=== PATIENT | female | born 1955 | race Caucasian/White ===

== ENCOUNTER → 2016-05-19 | Outpatient (CLI) | payer MEDICARE ==
[2016-05-19 15:28] LABS: Non-African American GFR(MDRD) >60 (>60 ml/min/1.73 sqM)
--- NOTE | 2016-05-19 23:11 | MR ---
EXAMINATION TYPE: MR brain wo/w con DATE OF EXAM: 05/19/2016 8:33 PM COMPARISON: 08/23/2015 HISTORY: MS, recent CHI, increased left leg weakness CONTRAST: Standard multiplanar, multisequence MRI departmental protocol utilizing 12 mL intravenous MultiHance gadolinium contrast. FINDINGS: There is extensive patchy increased signal on the T2 and FLAIR images in the periventricula r white matter. These areas measure up to 2 cm. Densities are coalescent. There is thinning of the co rpus callosum. The brainstem is intact. There is some mucosal thickening in the nasopharynx. Ventricl es are of normal size. There is white matter disease sparing of the cerebellum. There is increased si gnal within the thinned corpus callosum. I see no pathologic enhancement. Sella turcica appears hill l. Optic chiasm appears normal. IMPRESSION: Extensive white matter changes in both cerebral hemispheres with also involvement of the corpus callo sum and this is consistent with significant demyelinating disease. I do not see any progression of di sease compared to the last exam of 08/23/2015. The lesions are numerous and coalescent. Mild chronic e thmoid sinusitis.
== END | disposition home or self-care (01) ==
LOC: RADMRIMAIN 14:58
PROVIDERS: ATTEND Psychiatry & Neurology Neurology
DX: R90.82 White matter disease, unspecified (principal); G93.9 Disorder of brain, unspecified
CPT/HCPCS: 82565; 70553; A9577

== ENCOUNTER → 2018-02-15 | Outpatient (CLI) | payer MEDICARE ==
[~2018-02-15] MED LIST: SODIUM CHLORIDE 0.9% 500 ML 500 ML in EMPTY BAG 1 BAG IV PRN
[2018-02-15 14:10] VITALS: BP 100/65; PULSE 73; RESP 16; TEMP 98.1
== END | disposition home or self-care (01) ==
LOC: PROCWHC3 13:50
PROVIDERS: ATTEND Psychiatry & Neurology Neurology
DX: G35 Multiple sclerosis (principal)
CPT/HCPCS: 96365; J2930

== ENCOUNTER → 2018-05-19 | Outpatient (CLI) | payer MEDICARE | LOC: LABWHC1 10:55 | PROVIDERS: ATTEND Psychiatry & Neurology Neurology | DX: Z11.59 Encounter for screening for other viral diseases (principal) | CPT/HCPCS: 36415; 86704 ==

== ENCOUNTER → 2018-06-16 | Outpatient (CLI) | payer MEDICARE | END | disposition home or self-care (01) | LOC: LABWHC1 11:11 | PROVIDERS: ATTEND Psychiatry & Neurology Neurology | DX: G35 Multiple sclerosis (principal) | CPT/HCPCS: 36415; 86704 ==

== ENCOUNTER → 2019-03-27 | Outpatient (CLI) | payer MEDICARE ==
[2019-03-27 11:45] LABS: HCT 40.3 % (34.0-46.0); HGB 12.5 gm/dL (11.4-16.0); Hypochromasia Moderate; MCH 26.7 pg (25.0-35.0); MCHC 31.1 g/dL (31.0-37.0); MCV 85.9 fL (80.0-100.0); Mean Platelet Volume 7.2; Platelet Count 365 k/uL (150-450); RDW 13.8 % (11.5-15.5); WBC 7.6 k/uL (3.8-10.6)
[2019-03-27 17:56] LABS: Hemoglobin A1C 6.2 % (4.0-6.0)
[2019-03-27 18:37] LABS: ALT 30 U/L (8-44); AST 29 U/L (13-35); African American GFR (CKD) 106.9 (60.0-200.0); Alkaline Phosphatase 135 U/L (41-126); BUN/Creat Ratio 27.14 Ratio (12.00-20.00); C Reactive Protein <0.4 mg/dL (0.0-0.8); Calcium 9.8 mg/dL (8.7-10.3); Carbon Dioxide 25.5 mmol/L (21.6-31.8); Chloride 107 mmol/L (96-109); Creatine Kinase 53 U/L (26-186); Glucose 89 mg/dL (70-110); Non-African American GFR(CKD) 92.2 (60.0-200.0); Potassium 4.7 mmol/L (3.5-5.5); Sodium 140 mmol/L (135-145); Total Bilirubin 0.3 mg/dL (0.3-1.2); Total Protein 6.2 g/dL (6.2-8.2)
== END | disposition home or self-care (01) ==
LOC: LABWHC1 10:36
PROVIDERS: ATTEND Psychiatry & Neurology Neurology
DX: I67.9 Cerebrovascular disease, unspecified (principal); G35 Multiple sclerosis; T50.905A Adverse effect of unspecified drugs, medicaments and biological substances, initial encounter; R93.6 Abnormal findings on diagnostic imaging of limbs; R53.1 Weakness; R73.9 Hyperglycemia, unspecified
CPT/HCPCS: 36415; 80053; 82550; 82607; 83036; 83090; 85027; 86140

== ENCOUNTER → 2019-03-29 | Outpatient (CLI) | payer MEDICARE ==
--- NOTE | 2019-03-29 14:42 | MR ---
EXAMINATION TYPE: MR brain/cspine wo/w DATE OF EXAM: 03/29/2019 COMPARISON: 08/23/2015 HISTORY: MS, worsening balance and gait CONTRAST: Performed utilizing 4.5 mL intravenous Gadavist gadolinium contrast. TECHNIQUE: Multiplanar, multiecho imaging on a 3.0 Shanna magnet is performed through the brain. Stud y is performed within 24 hours of arrival to the hospital. The craniovertebral junction is normal. The pituitary is normal. Diffusion-weighted imaging is performed. No abnormal hyperintensity is present to suggest an acute i ntracranial infarct or acute ischemic change. White matter changes: Present There are patchy to confluent white matter changes in the periventricular white matter. This appears similar to the comparison study. Distribution and pattern appears stable. Reference measurements in the posterior left centrum semiovale is 1.1 compared to 1.0 cm previous (se vida 501 image 22) and within the right frontal region 1.5 cm compared to 1.5 cm previous (series 50 1 image 22). No new lesions or enhancing lesions are evident. Ventricles and sulci are appropriate for the patient age. Postcontrast imaging is performed. No suspicious enhancement is evident. IMPRESSIONS: 1. Confluent periventricular white matter changes, stable from comparison. EXAMINATION TYPE: MR brain/cspine wo/w DATE OF EXAM: 03/29/2019 COMPARISON: 08/23/2015 HISTORY: MS, worsening balance and gait CONTRAST: Performed utilizing 4.5 mL intravenous Gadavist gadolinium contrast. TECHNIQUE: Multiplanar multiecho imaging on a 3.0 Shanna magnet is performed through the cervical spin e. FINDINGS: The craniovertebral junction is normal. Vertebral body alignment is normal. There is a p rior fusion between C4 appears to be C6. The postsurgical fusion changes make level identification di fficult. C7-T1: No focal disc herniation or significant disc bulge is evident. No spinal canal stenosis or n eural foraminal stenosis is present. C6-7: There is a right paracentral focal bulge with anterior thecal sac compression. No cord contact is evident. Neural foramen are patent.. C5-6: Some endplate changes have mild anterior thecal sac compression. No cord contact or cord deform ity is evident.. C4-5: No focal disc herniation or significant disc bulge is evident. No spinal canal stenosis or nimisha ral foraminal stenosis is present. C3-4: Mild disc bulging is anterior thecal sac contact. No cord contact is evident. No spinal canal s tenosis or neural foraminal stenosis is present.. C2-3: No focal disc herniation or significant disc bulge is evident. No spinal canal stenosis or nimisha ral foraminal stenosis is present. Posterior joint of T6 level there is a focal area of increased signal within the spinal cord this kourtney sures approximately 0.6 cm, series [id number]. This appears to be more focal and developing from the sury rison study. The fainter white matter changes are not as apparent on the current exam. No suspicious enhancement is evident. IMPRESSIONS: 1. There may be some developing white matter plaque posterior to C6 which can be compatible with mult iple sclerosis in proper clinical setting
== END | disposition home or self-care (01) ==
LOC: RADMRIMAIN 07:50
PROVIDERS: ATTEND Psychiatry & Neurology Neurology
DX: R90.89 Other abnormal findings on diagnostic imaging of central nervous system (principal); G35 Multiple sclerosis
CPT/HCPCS: 70553; 72156; A9585

== ENCOUNTER → 2019-10-09 | Outpatient (CLI) | payer MEDICARE ==
[2019-10-09 13:13] LABS: Basophils # (A) 0.1 k/uL (0-0.2); Basophils % (A) 1 %; Eosinophils # (A) 0.5 k/uL (0-0.7); Eosinophils % (A) 9 %; HCT 38.3 % (34.0-46.0); HGB 12.1 gm/dL (11.4-16.0); Hypochromasia Moderate; Lymphocytes # (A) 1.8 k/uL (1.0-4.8); Lymphocytes % (A) 31 %; MCHC 31.6 g/dL (31.0-37.0); MCV 85.6 fL (80.0-100.0); Mean Platelet Volume 9.1; Monocytes # (A) 0.3 k/uL (0-1.0); Monocytes % (A) 5 %; Neutrophils # (A) 2.8 k/uL (1.3-7.7); Neutrophils % (A) 49 %; Platelet Count 303 k/uL (150-450); RBC 4.47 m/uL (3.80-5.40); RDW 13.9 % (11.5-15.5); WBC 5.8 k/uL (3.8-10.6)
[2019-10-09 20:22] LABS: African American GFR (CKD) 118.5 (60.0-200.0); Albumin 4.2 g/dL (3.80-4.90); Anion Gap 5.9 mmol/L (4.00-12.00); Calcium 9.6 mg/dL (8.7-10.3); Carbon Dioxide 29.1 mmol/L (21.6-31.8); Globulin 2.1 g/dL (1.6-3.3); Non-African American GFR(CKD) 102.3 (60.0-200.0); Potassium 4.8 mmol/L (3.5-5.5); Total Bilirubin 0.6 mg/dL (0.2-1.2); Total Protein 6.3 g/dL (6.2-8.2)
== END | disposition home or self-care (01) ==
LOC: LABWHC1 11:54
PROVIDERS: ATTEND Psychiatry & Neurology Neurology
DX: G35 Multiple sclerosis (principal); T50.995A Adverse effect of other drugs, medicaments and biological substances, initial encounter
CPT/HCPCS: 36415; 80053; 85025

== ENCOUNTER → 2020-10-21 | Outpatient (CLI) | payer MEDICARE ==
[2020-10-21 13:25] LABS: Appearance,Urine Clear (Clear); Bilirubin,Urine Negative (Negative); Blood,Urine Small (Negative); Color,Urine Yellow; Glucose,Urine (UA) Negative (Negative); Hyaline Casts,Urine 1 /lpf (0-2); Ketones,Urine Negative (Negative); Leukocyte Esterase,Urine Trace (Negative); Mucus,Urine Few /hpf; Nitrite,Urine Negative (Negative); PH, Urine 6.5 (5.0-8.0); Protein,Urine Negative (Negative); RBC,Urine 13 /hpf (0-5); Specific Gravity,Urine 1.014 (1.001-1.035); Squamous Epithelial Cell,Urine <1 /hpf (0-4); Urobilinogen,Urine <2.0 mg/dL (<2.0); WBC,Urine <1 /hpf (0-5)
[2020-10-21 18:48] LABS: Basophils # (A) 0.06 X 10*3/uL (0.00-0.10); Basophils % (A) 0.9 %; Eosinophils % (A) 4.3 %; HCT 39.5 % (37.2-46.3); HGB 12.4 g/dL (12.0-15.0); Lymphocytes # (A) 2.03 X 10*3/uL (0.90-5.00); Lymphocytes % (A) 28.9 %; MCH 29.2 pg (27.0-32.0); MCHC 31.4 g/dL (32.0-37.0); MCV 93.2 fL (80.0-97.0); Mean Platelet Volume 11.8 fL (9.5-12.2); Monocytes # (A) 0.38 X 10*3/uL (0.20-1.00); Monocytes % (A) 5.4 %; Neutrophils # (A) 4.24 X 10*3/uL (1.80-7.70); Neutrophils % (A) 60.4 %; Platelet Count 268 X 10*3/uL (140-440); RBC 4.24 X 10*6/uL (4.10-5.20); WBC 7.02 X 10*3/uL (4.50-10.00)
[2020-10-21 20:04] LABS: ALT 20 U/L (8-44); AST 22 U/L (13-35); African American GFR (CKD) 110.9 (60.0-200.0); Albumin/Globulin Ratio 1.78 (1.60-3.17); Alkaline Phosphatase 101 U/L (41-126); BUN/Creat Ratio 28.33 Ratio (12.00-20.00); Calcium 9.2 mg/dL (8.7-10.3); Carbon Dioxide 28.5 mmol/L (21.6-31.8); Chloride 106 mmol/L (96-109); Globulin 2.3 g/dL (1.6-3.3); Glucose 84 mg/dL (70-110); Non-African American GFR(CKD) 95.7 (60.0-200.0); Potassium 4.5 mmol/L (3.5-5.5); Sodium 138 mmol/L (135-145); Total Bilirubin 0.6 mg/dL (0.2-1.2); Total Protein 6.4 g/dL (6.2-8.2)
== END | disposition home or self-care (01) ==
LOC: LABWHC1 12:01
PROVIDERS: ATTEND Psychiatry & Neurology Neurology
DX: G35 Multiple sclerosis (principal); R35.0 Frequency of micturition; Z79.899 Other long term (current) drug therapy
CPT/HCPCS: 36415; 80053; 81001; 82306; 82607; 84439; 84443; 85025; 87086

== ENCOUNTER → 2020-12-16 | Outpatient (CLI) | payer MEDICARE ==
--- NOTE | 2020-12-17 04:07 | MR ---
EXAMINATION TYPE: MR brain/cspine wo/w DATE OF EXAM: 12/16/2020 COMPARISON: 03/29/2019 HISTORY: Worsening MS, Gait imbalance CONTRAST: Standard multiplanar, multisequence MRI departmental protocol utilizing 5 mL intravenous Gadavist dawit olinium contrast. There is cerebral cortical atrophy. On the T2 and FLAIR images there is extensive coalescent increase d signal in the periventricular white matter. This extends from the ventricles into the treviño-white ma tter junction of both cerebral hemispheres. The brainstem is intact. Cerebellum is intact. Contrast i mages show no pathologic enhancement. There is normal enhancement of the venous sinuses. The corpus c allosum shows mild thinning. There is multilevel cervical spine fusion surgery. Cervical spinal cord shows no edema. There is narr owing of the spinal canal due to facet arthropathy and endplate spur formation at C5-6. Spinal canal measures 6 mm at C5-6 which is the narrowest point. There is a 5 mm focus of increased signal in the upper cord and medulla at the C1 level on the left side. This appears nonenhancing. IMPRESSION: Extensive white matter disease in both cerebral hemispheres without enhancement. This would be consis tent with demyelinating disease or severe microvascular ischemia. Cerebral atrophy. Brain appears not significantly different than old exam. Single focus of increased signal in the upper cervical cord and medulla on the left side consistent w ith demyelinating disease. Unchanged. Cervical spinal stenosis with previous cervical spine surgery. Unchanged. I do not see any significant evidence for progression of disease compared to old exam.
== END | disposition home or self-care (01) ==
LOC: RADMRIMAIN 11:39
PROVIDERS: ATTEND Psychiatry & Neurology Neurology
DX: M48.02 Spinal stenosis, cervical region (principal); G31.9 Degenerative disease of nervous system, unspecified
CPT/HCPCS: 70553; 72156; A9585

== ENCOUNTER → 2021-08-18 | Outpatient (CLI) | payer MEDICARE ==
[2021-08-19 15:00] LABS: Appearance,Urine Clear (Clear); Bacteria,Urine Rare /hpf; Bilirubin,Urine Negative (Negative); Blood,Urine Trace (Negative); Calcium Oxalate Crystals,Urine Few /hpf; Color,Urine Yellow; Glucose,Urine (UA) Negative (Negative); Ketones,Urine Negative (Negative); Leukocyte Esterase,Urine Negative (Negative); Mucus,Urine Occasional /hpf; Nitrite,Urine Negative (Negative); PH, Urine 6.5 (5.0-8.0); Protein,Urine Negative (Negative); RBC,Urine 8 /hpf (0-5); Specific Gravity,Urine 1.017 (1.001-1.035); Urobilinogen,Urine <2.0 mg/dL (<2.0); WBC,Urine 2 /hpf (0-5)
== END | disposition home or self-care (01) ==
LOC: LABWHC1 10:18
PROVIDERS: ATTEND Psychiatry & Neurology Neurology
DX: M25.50 Pain in unspecified joint (principal); Z87.440 Personal history of urinary (tract) infections
CPT/HCPCS: 36415; 81001; 85652; 86431

== ENCOUNTER → 2023-01-28 | Outpatient (CLI) | payer MEDICARE ==
[2023-01-28 16:37] LABS: ALT 32 U/L (8-44); AST 24 U/L (13-35); Albumin 4.5 d/dL (3.8-4.9); Alkaline Phosphatase 87 U/L (41-126); BUN/Creat Ratio 26.71 Ratio (12.00-20.00); Blood Urea Nitrogen 18.7 mg/dL (9.0-27.0); Calcium 10.2 mg/dL (8.7-10.3); Carbon Dioxide 28.9 mmol/L (21.6-31.8); Chloride 105 mmol/L (96-109); Globulin 2.5 d/dL (1.6-3.3); Glucose 109 mg/dL (70-110); Potassium 4.3 mmol/L (3.5-5.5); Sodium 143 mmol/L (135-145); Total Bilirubin 0.4 mg/dL (0.3-1.2)
[2023-01-28 17:08] LABS: Basophils # (A) 0.09 X 10*3/uL (0.00-0.10); Basophils % (A) 1.5 %; Eosinophils # (A) 0.56 X 10*3/uL (0.04-0.35); Eosinophils % (A) 9.4 %; HCT 39.4 % (37.2-46.3); HGB 12.6 d/dL (12.0-15.0); Lymphocytes # (A) 1.27 X 10*3/uL (0.90-5.00); Lymphocytes % (A) 21.3 %; MCH 29.9 pg (27.0-32.0); MCV 93.4 FL (80.0-97.0); Mean Platelet Volume 11.1 FL (9.5-12.2); Monocytes # (A) 0.43 X 10*3/uL (0.20-1.00); Monocytes % (A) 7.2 %; NRBC Per 100 WBC 0 X 10*3/uL (0.00-0.01); Neutrophils # (A) 3.58 X 10*3/uL (1.80-7.70); Neutrophils % (A) 60.3 %; Platelet Count 305 X 10*3/uL (140-440); RBC 4.22 X 10*6/uL (4.10-5.20); RDW 14.7 % (11.5-14.5); WBC 5.95 X 10*3/uL (4.50-10.00)
== END | disposition home or self-care (01) ==
LOC: LABWHC1 10:58
PROVIDERS: ATTEND Psychiatry & Neurology Neurology
DX: N39.0 Urinary tract infection, site not specified (principal); G35 Multiple sclerosis; Z79.899 Other long term (current) drug therapy
CPT/HCPCS: 36415; 80053; 85025

== ENCOUNTER → 2023-01-29 | Outpatient (CLI) | payer MEDICARE ==
[2023-01-29 22:39] LABS: Appearance,Urine Cloudy (Clear); Bilirubin,Urine Negative (Negative); Blood,Urine Moderate (Negative); Color,Urine Yellow (Yellow); Ketones,Urine Negative (Negative); Nitrite,Urine Negative (Negative); Specific Gravity,Urine 1.018 (1.001-1.030)
[2023-01-29 22:55] LABS: Bacteria,Urine 4+ (None Seen); Calcium Oxalate Crystals,Urine Present (None Seen)
== END | disposition home or self-care (01) ==
LOC: LABWHC1 09:59
PROVIDERS: ATTEND Psychiatry & Neurology Neurology
DX: N39.0 Urinary tract infection, site not specified (principal); G35 Multiple sclerosis; Z79.899 Other long term (current) drug therapy
CPT/HCPCS: 81001; 87077; 87086; 87186

== ENCOUNTER → 2023-05-06 | Outpatient (CLI) | payer MEDICARE ==
--- NOTE | 2023-05-09 12:22 | MR ---
EXAMINATION TYPE: MR lumbar spine wo con DATE OF EXAM: 05/06/2023 COMPARISON: None HISTORY: Pain CONTRAST: 0 mL intravenous Gadavist. TECHNIQUE: Multiplanar, multisequence images of the lumbar spine were acquired. FINDINGS: L5-S1: There is loss of disc height is normal. Broad-based disc bulge has epidural space impression. There is compression and displacement of the left exiting S1 nerve root within the spinal canal. Mini mal contact with the right exiting S1 nerve root is present. No AP spinal canal stenosis is present. Facet hypertrophy as left posterior lateral thecal sac compression. There may be nerve root compressi on within the left foramen. Severe left and moderate to severe right foraminal stenosis is present. C orrelate with left S1 radicular symptoms. L4-L5: Very minimal anterior listhesis of L4 anteriorly on L5 may be present. Facet hypertrophy with ligamentum flavum laxity is present. This has bilateral posterior lateral thecal sac impression. Ther e has trefoil appearance to the thecal sac. Some stenosis is present. AP spinal canal narrowing is no t evident. Moderate bilateral foraminal stenosis is present. L3-L4: Facet hypertrophy is some mild posterior lateral thecal sac compression. No spinal canal. Mode rate right and left foraminal narrowing is present. No AP spinal canal stenosis. L2-L3: Facet hypertrophy is present. This has some right posterior lateral thecal sac compression. Mi nimal retrograde listhesis of L2 posterior L3 may be present no AP spinal canal stenosis is present. Disc space is narrowed. Severe right and moderate left foraminal narrowing is present. L1-L2: Compression deformities of L1 and L2 are present. These have approximately 40% of the body hei ght loss of L2 and 60% loss of the L1 vertebral body height.. There is diminished signal on T1 and in creased signal on T2 within the L1 compression deformity suggesting this may be acute at L1. There is a grade 1 retrolisthesis of L1 posterior on L2. T12-L1: Appears to be a moderate size left paracentral to left lateral disc herniation is moderate an terior thecal sac compression. This has cord contact. Correlate with patient symptoms. Correlate for left L1 radicular symptoms. No spinal canal stenosis is present. Right foramen is patent. There appea rs to be severe left foraminal. No AP spinal canal narrowing. IMPRESSION: 1. Compression deformity of L1 with approximate 60% loss of vertebral body height. This may be acute. No posterior wall displacement is evident. 2. Moderate-sized left paracentral disc herniation T12-L1 with moderate thecal sac compression. Some cord contact may be present. Correlate with left L1 radicular symptoms and compression within foramen . 3. Compression deformity of L2 with approximately 40% loss of vertebral body height. This appears old . 4. Grade 1 retrolisthesis of L1 on L2 and L2 on L3. Minimal anterolisthesis of L4 on L5 may be presen t. 5. There are multiple levels of severe foraminal stenosis discussed above. #6 multilevel facet hypert rophy with posterior lateral thecal sac compression this is causing some stenosis at the L4-5 level. 6. Facet hypertrophy the posterior lateral thecal sac compression in conjunction with disc bulging li kim has exiting left S1 nerve root impingement. Correlate with left S1 radicular symptoms.
== END | disposition home or self-care (01) ==
LOC: RADMRIMAIN 10:58
PROVIDERS: ATTEND Orthopaedic Surgery
DX: M48.56XA Collapsed vertebra, not elsewhere classified, lumbar region, initial encounter for fracture (principal); M51.25 Other intervertebral disc displacement, thoracolumbar region; M43.16 Spondylolisthesis, lumbar region; M99.73 Connective tissue and disc stenosis of intervertebral foramina of lumbar region
CPT/HCPCS: 72148

== ENCOUNTER → 2023-06-07 | Outpatient (CLI) | payer MEDICARE ==
--- NOTE | 2023-06-10 14:44 | CT ---
EXAMINATION TYPE: CT thor lumbar spine wo con DATE OF EXAM: 06/07/2023 COMPARISON: MRI lumbar spine 05/06/2023 HISTORY: degenerative back pain through mid to low back CT DLP: 598.7 mGycm Automated exposure control for dose reduction was used. Contrast: None Technique: Axial images 3 mm thick sections. Reconstructed images in the coronal and sagittal planes. FINDINGS: There is a grade 1 retrolisthesis of L1 posteriorly on L2 and L2 posterior on L3. Compression deformi ties of L1 and L2 are evident. Some posterior endplate spurring at L1 may be present right L1-2: There is loss of disc height this level. Vacuum disc phenomenon is present. Streaky or wall dis placement estimated at 0.6 cm. Spinal canal stenosis is not present. L2-3: Superior posterior endplate displacement of 0.7 cm is present. No spinal canal stenosis is pres ent. Degenerative disc changes are also noted L3-4 and L5-S1 and posteriorly at L4-5. T12-L1 and T11-12 lo ss of disc height with vacuum disc phenomenon is noted. No posterior wall displacement is evident. No disc herniation is evident. No spinal canal stenosis or neural foraminal stenosis. The upper and mid thoracic spine appear without compression deformity or focal disc herniation. There is loss of disc height within the mid to lower thoracic spine. COMPARISON: Compression deformity at L1 and L2 is evident and appears stable over the interval. IMPRESSION: 1. SUPERIOR ENDPLATE COMPRESSION DEFORMITIES OF L1 AND L2 WITH POSTERIOR WALL DISPLACEMENT INTO THE S SEAN CANAL 0.6 TO 0.7 CM. AP SPINAL CANAL STENOSIS HOWEVER IS NOT PRESENT. 2. RETROLISTHESIS OF L1 POSTERIOR ON L2 AND L2 POSTERIOR ON L3. 3. MULTILEVEL DEGENERATIVE DISC CHANGES THROUGHOUT THE LUMBAR SPINE AND TO A LESSER DEGREE WITHIN THE LOWER THORACIC SPINE.
== END | disposition home or self-care (01) ==
LOC: RADCTMAIN 09:36
PROVIDERS: ATTEND Orthopaedic Surgery
DX: M43.16 Spondylolisthesis, lumbar region (principal); M51.26 Other intervertebral disc displacement, lumbar region; M51.36 Other intervertebral disc degeneration, lumbar region; M51.34 Other intervertebral disc degeneration, thoracic region; M48.56XA Collapsed vertebra, not elsewhere classified, lumbar region, initial encounter for fracture; M48.061 Spinal stenosis, lumbar region without neurogenic claudication
CPT/HCPCS: 72128; 72131

== ENCOUNTER → 2023-07-07 | Outpatient (CLI) | payer MEDICARE ==
--- NOTE | 2023-07-10 12:34 | CT ---
EXAMINATION TYPE: CT lumbar spine wo con CT DLP: 334.5 mGycm, Automated exposure control for dose reduction was used. DATE OF EXAM: 07/07/2023 12:43 PM COMPARISON: 06/07/2023. CLINICAL INDICATION:Female, 68 years old with history of M48.56XA COLLAPSED VERTE; PHH, f/u lumbar fx TECHNIQUE: Multiple axial images were obtained from the midportion of T11 through the sacroiliac brenna nts. Soft tissue and bone windows in coronal and sagittal planes were obtained and reviewed. Contrast used: mL of , (None, if empty). Oral contrast used: (None, if empty). FINDINGS: Severe degeneration changes of the spine with scoliosis changes. There is increased lordosis and kyph osis but to be secondary to L1 and L2 vertebral body deformities. The morphology of the superior endp late of L1 with somewhat curvilinear lucency is not significantly changed from 06/07/2023. No convinci ng evidence for acute fracture of the spine. There is vacuum disc phenomenon present at T12-L1 and L1-L2 and L2-L3. Severe facet joint arthropathy seen throughout the lumbar spine worse at L4-L5 and L5-S1. There is severe degeneration throughout the lumbar spine. Within the limitations of the exam there is spinal canal stenosis worse at L4-L5 with mild to moderate L3-L4 with mild L1-L2 with mild to modera te, T12-L1 with mild to moderate stenosis. Neural foraminal stenosis worse at L5-S1 with severe bilateral, L4-L5 moderate bilateral, L2-L3 moder ate bilateral, L1-L2, moderate bilateral T12-L1 moderate to severe bilateral. IMPRESSION: 1. Severe degeneration changes, no convincing CT evidence for new acute fracture. 2. Scoliosis and increased lordosis of the lumbar spine similar to prior. 3. No foraminal stenosis worse at T12-L1 with moderate to severe and severe L5-S1. 4. Spinal canal stenosis worse at L1-L2 with mild to moderate and T12-L1 with moderate spinal canal stenosis.
== END | disposition home or self-care (01) ==
LOC: RADCTMAIN 11:58
PROVIDERS: ATTEND Neurological Surgery
DX: M48.061 Spinal stenosis, lumbar region without neurogenic claudication (principal); M48.56XA Collapsed vertebra, not elsewhere classified, lumbar region, initial encounter for fracture; M47.816 Spondylosis without myelopathy or radiculopathy, lumbar region; M41.86 Other forms of scoliosis, lumbar region
CPT/HCPCS: 72131

== ENCOUNTER → 2023-09-01 | Outpatient (CLI) | payer MEDICARE ==
--- NOTE | 2023-09-06 21:59 | CT ---
EXAMINATION TYPE: CT lumbar spine wo con CT DLP: 796 mGycm, Automated exposure control for dose reduction was used. DATE OF EXAM: 09/01/2023 11:39 AM COMPARISON: 07/07/2023. CLINICAL INDICATION:Female, 68 years old with history of S32.020S WEDGE COMPRESSION FRACTURE OF SECON D LUM; PHH, f/u L2 fx TECHNIQUE: Multiple axial images were obtained from the midportion of T11 through the sacroiliac brenna nts. Soft tissue and bone windows in coronal and sagittal planes were obtained and reviewed. 3-D ref ormats of the bones were created on a separate workstation and submitted for review. Contrast used: mL of , (None, if empty). Oral contrast used: (None, if empty). FINDINGS: Severe degeneration changes of the spine with scoliosis changes. There is increased lordosis and kyph osis secondary to L1 and L2 vertebral body deformities, combination of anterior wedging and superior endplate central compression fracture, stable. The morphology of the superior endplate of L1 with delma ewhat curvilinear lucency is not significantly changed from 06/07/2023. No convincing evidence for acu te fracture of the spine. There is vacuum disc phenomenon present at T12-L1 and L1-L2 and L2-L3. Severe facet joint arthropathy seen throughout the lumbar spine worse at L4-L5 and L5- S1. There is severe degeneration throughout the lumbar spine. Within the limitations of the exam there is spinal canal stenosis worse at L4-L5 with mild to moderate L3-L4 with mild L1-L2 with mild to modera te, T12-L1 with mild to moderate stenosis. Neural foraminal stenosis worse at L5-S1 with severe bilateral, L4-L5 moderate bilateral, L2-L3 moder ate bilateral, L1-L2, moderate bilateral T12-L1 moderate to severe bilateral. IMPRESSION: 1. Severe degeneration changes, no convincing CT evidence for new acute fracture. 2. Scoliosis and increased lordosis of the lumbar spine similar to prior. 3. No foraminal stenosis worse at T12-L1 with moderate to severe and severe L5- S1. 4. Spinal canal stenosis worse at L1-L2 with mild to moderate and T12-L1 with moderate spinal canal s tenosis. 5. Fracture deformities L1-L2, chronic and stable.
== END | disposition home or self-care (01) ==
LOC: RADCTMAIN 10:57
PROVIDERS: ATTEND Neurological Surgery
DX: M51.36 Other intervertebral disc degeneration, lumbar region (principal); M41.9 Scoliosis, unspecified; M48.061 Spinal stenosis, lumbar region without neurogenic claudication; S32.020S Wedge compression fracture of second lumbar vertebra, sequela
CPT/HCPCS: 72131

== ENCOUNTER → 2024-05-06 | Outpatient (CLI) | payer MEDICARE ==
[2024-05-06 14:55] LABS: Basophils % (A) 1.1 %; Eosinophils # (A) 0.62 X 10*3/uL (0.04-0.35); Eosinophils % (A) 6.8 %; HCT 40.3 % (37.2-46.3); Lymphocytes # (A) 1.62 X 10*3/uL (0.90-5.00); Lymphocytes % (A) 17.8 %; MCH 30.2 pg (27.0-32.0); MCHC 32.3 g/dL (32.0-37.0); MCV 93.7 FL (80.0-97.0); Mean Platelet Volume 10.9 FL (9.5-12.2); Monocytes # (A) 0.51 X 10*3/uL (0.20-1.00); Monocytes % (A) 5.6 %; NRBC Per 100 WBC 0 X 10*3/uL (0.00-0.01); Neutrophils # (A) 6.21 X 10*3/uL (1.80-7.70); Neutrophils % (A) 68.2 %; Platelet Count 399 X 10*3/uL (140-440); RDW 12.9 % (11.5-14.5); WBC 9.11 X 10*3/uL (4.50-10.00)
[2024-05-06 15:21] LABS: ALT 23 U/L (8-44); AST 22 U/L (13-35); Albumin 4.4 g/dL (3.8-4.9); Albumin/Globulin Ratio 1.42 Ratio (1.60-3.17); Alkaline Phosphatase 101 U/L (41-126); Blood Urea Nitrogen 19.5 mg/dL (9.0-27.0); Calcium 9.7 mg/dL (8.7-10.3); Carbon Dioxide 26.8 mmol/L (21.6-31.8); Chloride 106 mmol/L (96-109); Globulin 3.1 g/dL (1.6-3.3); Glucose 94 mg/dL (70-110); LDL Cholesterol,Calculated 125.9 mg/dL (0.0-131.0); Potassium 4.1 mmol/L (3.5-5.5); Sodium 145 mmol/L (135-145); T4, Free (Free Thyroxine) 1.51 ng/dL (0.80-1.80); Total Bilirubin 0.3 mg/dL (0.3-1.2); Total Protein 7.5 g/dL (6.2-8.2)
== END | disposition home or self-care (01) ==
LOC: LABWHC1 07:57
PROVIDERS: ATTEND Internal Medicine Geriatric Medicine
DX: E78.2 Mixed hyperlipidemia (principal); E03.9 Hypothyroidism, unspecified; R13.10 Dysphagia, unspecified; R73.9 Hyperglycemia, unspecified
CPT/HCPCS: 36415; 80053; 80061; 83036; 84439; 84443; 85025

== ENCOUNTER → 2024-08-22 | Outpatient (CLI) | payer MEDICARE ==
--- NOTE | 2024-08-22 16:14 | XR ---
EXAMINATION TYPE: XR lumbar spine 3V DATE OF EXAM: 08/22/2024 12:52 PM COMPARISON: CT 09/01/2023 CLINICAL INDICATION: Female, 69 years old with history of M54.50 LOW BACK PAIN, UNSPECIFIED; PHH, damion n FINDINGS: There is a degenerated levoconvex scoliosis of the lumbar spine. There is now a focal kypho tic deformity centered at T12-L1 due to the extensive superior endplate deformity and bone loss of L1 . The T12 inferior endplate appears to be maintained. Severe degenerative disc disease L1-L2 and L2-L 3 redemonstrated. Degenerative grade 1 retrolisthesis L1-L2, L2-L3, L3-L4. Remaining vertebral body h eights appear preserved. Hypertrophic facet arthropathy throughout. IMPRESSION: 1. Progression in kyphotic deformity at T12-L1 due to the vertebral body height loss of L1. Any super imposed acute injury on this chronic L1 compression fracture should be assessed clinically. The prese rvation of the T12 inferior endplate would argue against discitis osteomyelitis at this level. Follow -up if persistent clinical concern. 2. Redemonstrated severe degenerative disc disease L-1-L2 and L2-L3. 3. Hypertrophic facet arthropathy and grade 1 retrolisthesis L1-L4 levels redemonstrated. [facility], Workstation: [id number], 08/22/2024 4:12 PM
== END | disposition home or self-care (01) ==
LOC: RADXRMAIN 12:19
PROVIDERS: ATTEND Internal Medicine Geriatric Medicine
DX: M48.56XA Collapsed vertebra, not elsewhere classified, lumbar region, initial encounter for fracture (principal); M51.360 Other intervertebral disc degeneration, lumbar region with discogenic back pain only; M43.16 Spondylolisthesis, lumbar region; M47.816 Spondylosis without myelopathy or radiculopathy, lumbar region
CPT/HCPCS: 72100

== ENCOUNTER → 2024-09-08 | Outpatient (CLI) | payer MEDICARE ==
--- NOTE | 2024-09-08 12:00 | MR ---
EXAMINATION TYPE: MR lumbar spine wo/w con DATE OF EXAM: 09/08/2024 11:12 AM COMPARISON: . CLINICAL INDICATION: Female, 69 years old with history of S32.010A WEDGE COMPRESSION; PHH, Lower back pain x 1 month, wedge compression. TECHNIQUE: Multi planar, multi sequence imaging was performed utilizing: T1-weighted, T2-weighted, a nd turbo inversion recovery imaging of the lumbar spine. IV Contrast: 5 mL Gadobutrol (None, if empty) FINDINGS: Alignment: The lumbar vertebral bodies have preserved heights and scoliosis alignment. Cord: The conus medullaris and the distal spinal cord appear unremarkable with regards to their signa l intensity and morphology. Bones/Discs: Acute/subacute Compression fracture of increased or signal within the L4 vertebral body with 25% height loss no significant retropulsion. Chronic appearing compression fracture of L1 verteb ral body near complete height loss. Mild retropulsion with mild spinal canal stenosis. Multilevel dis c degeneration changes with osteophyte formation, disc space narrowing, Schmorl's nodes, and facet michael int arthropathy. Intervertebral disc signal is maintained. . T12-L1: No evidence of significant spinal canal stenosis or neural foraminal stenosis. L1-L2: Mild spinal canal stenosis secondary to compression deformity of L1. Moderate to severe bilate ral neural foraminal stenosis. L2-L3: No evidence of significant spinal canal stenosis. Facet joint arthropathy severe right and mod erate left neural foraminal stenosis. L3-L4: No evidence of significant spinal canal stenosis. Facet joint arthropathy moderate to severe r ight and moderate left neural foraminal stenosis. L4-L5: No evidence of significant spinal canal stenosis. Facet joint arthropathy moderate right and m oderate to severe left neural foraminal stenosis. L5-S1: Central disc protrusion without significant spinal canal or neural foraminal stenosis. This do es abut the forming nerve on the left. Moderate right and severe left neural foraminal stenosis secon godfrey to facet joint arthropathy. No significant spinal canal or neural foraminal stenosis in the remainder of the visualized levels. Other findings: None. IMPRESSION: 1. L4 compression deformity with bony edema and less than 25% height loss. No retropulsion. No signi ficant spinal canal stenosis. Moderate to severe left neural foraminal stenosis at this level. 2. L5-S1 central disc contusion which abuts forming nerves in the spinal canal Moderate right and se jaime left neural foraminal stenosis secondary to facet joint arthropathy. 3. Chronic compression deformity of L1 vertebral body with minimal retropulsion. 4. Severe degeneration changes throughout the spine. [facility], , 09/08/2024 11:58 AM
== END | disposition home or self-care (01) ==
LOC: RADMRIMAIN 10:17
PROVIDERS: ATTEND Internal Medicine Geriatric Medicine
DX: S32.010A Wedge compression fracture of first lumbar vertebra, initial encounter for closed fracture (principal); R60.9 Edema, unspecified; M99.73 Connective tissue and disc stenosis of intervertebral foramina of lumbar region; M47.816 Spondylosis without myelopathy or radiculopathy, lumbar region; M51.370 Other intervertebral disc degeneration, lumbosacral region with discogenic back pain only; X58.XXXA Exposure to other specified factors, initial encounter
CPT/HCPCS: 72158; A9585

== ENCOUNTER → 2024-11-01 | Outpatient (CLI) | payer MEDICARE ==
--- NOTE | 2024-11-01 15:09 | XR ---
EXAMINATION TYPE: XR lumbar spine 2 or 3V DATE OF EXAM: 11/01/2024 2:35 PM COMPARISON: 08/22/2024. CLINICAL INDICATION: Female, 69 years old with history of S32.040A WEDGE COMPRESSION FRACTURE OF FOUR TH LUMB; PHH, pain TECHNIQUE: XR lumbar spine 2 or 3V - Frontal, lateral and coned in L5-S1 lateral views of the spine. FINDINGS: No evidence of any acute osseous pathology. Compression deformities throughout the lumbar s pine at L1 with greater than 50% height loss L2 with 25-50% loss of at L4 with 50% height loss. There is scoliosis alignment apex left L3 alignment of the lumbar vertebral bodies. Scattered disc space n arrowing. Multilevel marginal osteophyte formation throughout the visualized spine. There is facet michael int arthropathy throughout the spine. Scattered at least moderate and severe neural foraminal stenosi s. IMPRESSION: 1. Compression deformities throughout the lumbar spine at L1 with greater than 50% height loss L2 wit h 25-50% loss of at L4 with 50% height loss 2. Moderate to severe multilevel disc degeneration with scoliosis. [facility], , 11/01/2024 3:07 PM
== END | disposition home or self-care (01) ==
LOC: RADXRMAIN 14:07
PROVIDERS: ATTEND Neurological Surgery
DX: S32.040A Wedge compression fracture of fourth lumbar vertebra, initial encounter for closed fracture (principal); M51.369 Other intervertebral disc degeneration, lumbar region without mention of lumbar back pain or lower extremity pain; M41.86 Other forms of scoliosis, lumbar region; X58.XXXA Exposure to other specified factors, initial encounter
CPT/HCPCS: 72100